=== PATIENT | male | born 1970 | race Caucasian/White ===

== ENCOUNTER 2016-08-13 | Emergency (ER) | payer MEDICARE, MEDICAID | END 2016-08-13 20:31 | disposition home or self-care (01) ==

== ENCOUNTER 2016-08-27 11:06 | Outpatient (CLI) | payer MEDICAID, MEDICARE | END 2016-08-27 11:07 | disposition critical access hospital (66) | DX: M79.605 Pain in left leg (principal); M79.604 Pain in right leg; R44.0 Auditory hallucinations | CPT/HCPCS: A0425; A0429 ==

== ENCOUNTER 2016-08-27 11:23 | Emergency (ER) | payer MEDICARE, MEDICAID ==
[2016-08-27] MEDS ORDERED: LORazepam 0.5 MG TABLET PO STA (14:18)
[2016-08-27] MEDS ORDERED: LORazepam 0.5 MG TABLET ONE (14:21)
== END 2016-08-27 17:24 | disposition home or self-care (01) ==
DX: F20.9 Schizophrenia, unspecified (principal); Z59.0 Homelessness; R32 Unspecified urinary incontinence; T24.002D Burn of unspecified degree of unspecified site of left lower limb, except ankle and foot, subsequent encounter; T24.001D Burn of unspecified degree of unspecified site of right lower limb, except ankle and foot, subsequent encounter; X00.0XXD Exposure to flames in uncontrolled fire in building or structure, subsequent encounter
CPT/HCPCS: 99283; A9270

== ENCOUNTER 2016-08-29 14:19 | Outpatient (CLI) | payer MEDICAID, MEDICARE | END 2016-08-29 14:20 | disposition critical access hospital (66) | DX: M79.605 Pain in left leg (principal); M79.604 Pain in right leg | CPT/HCPCS: A0425; A0429 ==

== ENCOUNTER 2016-08-29 14:38 | Emergency (ER) | payer MEDICARE, MEDICAID ==
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
[2016-08-29 16:11] VITALS: BP 137/91
== END 2016-08-29 16:09 | disposition home or self-care (01) ==
LOC: EDUNIT# → ED 14:38 → SUPCPDRO 14:38 → ED 16:09
DX: M79.605 Pain in left leg (principal); M79.604 Pain in right leg; F10.229 Alcohol dependence with intoxication, unspecified; F20.9 Schizophrenia, unspecified; Z59.0 Homelessness; T24.002D Burn of unspecified degree of unspecified site of left lower limb, except ankle and foot, subsequent encounter; T24.001D Burn of unspecified degree of unspecified site of right lower limb, except ankle and foot, subsequent encounter; X08.8XXD Exposure to other specified smoke, fire and flames, subsequent encounter
CPT/HCPCS: 99283

== ENCOUNTER 2016-08-30 15:42 | Outpatient (CLI) | payer MEDICAID, MEDICARE | END 2016-08-30 15:43 | disposition critical access hospital (66) | DX: M79.605 Pain in left leg (principal); M79.604 Pain in right leg ==

== ENCOUNTER 2016-08-30 16:02 | Emergency (ER) | payer MEDICARE, MEDICAID | END 2016-08-30 17:28 | disposition home or self-care (01) | DX: F10.120 Alcohol abuse with intoxication, uncomplicated (principal); F20.9 Schizophrenia, unspecified; M79.605 Pain in left leg; M79.604 Pain in right leg ==

== ENCOUNTER 2016-08-30 19:13 | Outpatient (CLI) | payer MEDICAID, MEDICARE | END 2016-08-30 19:14 | disposition short-term general hospital (02) | DX: M79.604 Pain in right leg (principal); M79.605 Pain in left leg | CPT/HCPCS: A0425; A0429 ==